=== PATIENT | male | born 2000 | race Asian ===

== ENCOUNTER 2024-03-26 00:42 | Emergency (ER) | payer OTHER ==
[~2024-03-26] VITALS: Ht 177.8 cm; Wt 89.5 kg
[2024-03-26 10:58] VITALS: BP 135/79; O2SAT 100
[2024-03-26] MEDS ORDERED: IBUP-1022 PO (11:10)
[2024-03-26 11:24] VITALS: TEMP 98.1
== END 2024-03-26 11:28 | disposition home or self-care (01) ==
LOC: M ED 00:42
DX: S09.90XA Unspecified injury of head, initial encounter (principal); Y04.0XXA Assault by unarmed brawl or fight, initial encounter; Y93.9 Activity, unspecified; Y92.9 Unspecified place or not applicable; Y99.9 Unspecified external cause status; Z79.1 Long term (current) use of non-steroidal anti-inflammatories (NSAID)